=== PATIENT | female | born 1950 | race Caucasian/White ===

== ENCOUNTER 2018-11-26 21:25 | Inpatient (IN) | payer MEDICARE, OTHER ==
[~2018-11-26] VITALS: Ht 157.5 cm; Wt 61.4 kg
[~2018-11-26 21:25] MED LIST: RESTASIS
[2018-11-26 22:02] LABS: BASOPHILS % 0.8 % (0.0-2.0); EOSINOPHILS % 1.9 % (0.0-5.0); HEMATOCRIT. 43.1 % (36.0-48.0); MEAN CORPUSCULAR VOLUME 86.4 fL (81.0-99.0); MEAN PLATELET VOLUME 10.6 fl (7.4-10.4); MONOCYTES % 12.7 % (2.0-8.0); NEUTROPHILS % 48.6 % (40.0-76.0); PLATELET 172 x1000/uL (130-400); RED BLOOD CELL COUNT 4.99 mill/uL (4.2-5.4); RED CELL DISTRIBUTION WIDTH 12.9 % (11.6-14.6)
[2018-11-26 22:09] LABS: CHLORIDE 107 mEq/L (98-107)
[2018-11-26 22:10] LABS: INR 1.2; PARTIAL THROMBOPLASTIN TIME 27.3 sec (23.4-31.0); PROTHROMBIN TIME 12.2 sec (9.1-11.1)
[2018-11-26] MEDS ORDERED: IOHEXOL-350 100 ML BOTTLE ONE (22:39)
[2018-11-26] MEDS ORDERED: SODIUM CHLORIDE 0.9% 1000ML BAG (SEPSIS BOLUS) IV ONE (23:30)
[2018-11-26] MEDS ORDERED: LEVOFLOXACIN 750MG PREMIX 150 ML IV ONE (23:30)
[2018-11-26] MEDS ORDERED: ASPIRIN 325MG EC TABLET PO ONE (23:30)
[2018-11-27 03:26] VITALS: BP 118/49
[2018-11-27 04:00] VITALS: BP 118/49
[2018-11-27] MEDS ORDERED: ONDANSETRON HCL 4MG/2ML INJ IV PRN (06:30)
[2018-11-27 08:00] VITALS: BP 101/51
[2018-11-27] MEDS: ASPIRIN 81MG TABLET PO SCH (09:24)
[2018-11-27] MEDS: PREDNISONE 20MG TABLET PO SCH (09:24)
[2018-11-27] MEDS: ENOXAPARIN 40MG/0.4ML SYR SUBCUT SCH (09:25)
[2018-11-27 09:33] LABS: BASOPHILS % 0.7 % (0.0-2.0); EOSINOPHILS % 1.5 % (0.0-5.0); HEMATOCRIT. 45.3 % (36.0-48.0); HEMOGLOBIN. 15.3 g/dL (12.0-16.0); MEAN CORPUSCULAR HEMOGLOBIN 29.4 pg (28.0-32.0); MEAN CORPUSCULAR VOLUME 86.9 fL (81.0-99.0); MONOCYTES % 10.3 % (2.0-8.0); NEUTROPHILS % 60.5 % (40.0-76.0); PLATELET 172 x1000/uL (130-400); RED BLOOD CELL COUNT 5.21 mill/uL (4.2-5.4); RED CELL DISTRIBUTION WIDTH 13.1 % (11.6-14.6)
[2018-11-27 09:43] LABS: CHLORIDE 111 mEq/L (98-107)
[2018-11-27 09:50] LABS: LDL CHOLESTEROL 127 mg/dL (5-100)
[2018-11-27 09:52] LABS: HDL CHOLESTEROL 48 mg/dL (40-59); T4 FREE 1.22 ng/dL (0.76-1.46)
[2018-11-27] MEDS: ACYCLOVIR 400 MG TABLET PO SCH ×4 (11:36→21:22)
[2018-11-27 12:00] VITALS: BP 106/48
[2018-11-27] MEDS: ACETAMINOPHEN 325MG TABLET PO PRN (15:19)
[2018-11-27 16:00] VITALS: BP 95/57
[2018-11-27 20:00] VITALS: BP 111/58
[2018-11-27] MEDS ORDERED: ATORVASTATIN CALCIUM 20MG TABLET PO SCH (21:00)
[2018-11-27] MEDS ORDERED: LEVOFLOXACIN 500MG PREMIX 100 ML IV SCH (21:00)
[2018-11-28] VITALS: BP 110/60
[2018-11-28 04:00] VITALS: BP 104/47
[2018-11-28] MEDS: ACYCLOVIR 400 MG TABLET PO SCH ×3 (06:05→14:43)
[2018-11-28 06:36] LABS: BASOPHILS % 0.3 % (0.0-2.0); EOSINOPHILS % 0.3 % (0.0-5.0); HEMOGLOBIN. 13.4 g/dL (12.0-16.0); LYMPHOCYTES % 23.6 % (20.0-50.0); MEAN CORPUSCULAR HEMOGLOBIN 29.4 pg (28.0-32.0); MEAN CORPUSCULAR VOLUME 87.6 fL (81.0-99.0); MEAN PLATELET VOLUME 10.5 fl (7.4-10.4); MONOCYTES % 11.7 % (2.0-8.0); NEUTROPHILS % 64.1 % (40.0-76.0); PLATELET 159 x1000/uL (130-400); RED BLOOD CELL COUNT 4.57 mill/uL (4.2-5.4)
[2018-11-28 06:57] LABS: CHLORIDE 110 mEq/L (98-107)
[2018-11-28 08:00] VITALS: BP 104/58
[2018-11-28] MEDS: ACETAMINOPHEN 325MG TABLET PO PRN (08:48)
[2018-11-28] MEDS: ASPIRIN 81MG TABLET PO SCH (08:49)
[2018-11-28] MEDS: PREDNISONE 20MG TABLET PO SCH (08:49)
[2018-11-28] MEDS: ENOXAPARIN 40MG/0.4ML SYR SUBCUT SCH (08:50)
[2018-11-28 12:00] VITALS: BP 110/50
[2018-11-28 14:22] VITALS: BP 108/50
[2018-11-28 16:00] VITALS: BP 108/50
== END 2018-11-28 16:44 | disposition home or self-care (01) | DRG 48 ==
LOC: ER 21:25 → 7WST 23:55 → ENRESERV 11-27 00:27
PROVIDERS: ADMIT Internal Medicine; ATTEND Internal Medicine
DX: G51.0 Bell's palsy (principal); E03.9 Hypothyroidism, unspecified; E78.00 Pure hypercholesterolemia, unspecified; E78.5 Hyperlipidemia, unspecified; H54.7 Unspecified visual loss; I10 Essential (primary) hypertension; Z88.8 Allergy status to other drugs, medicaments and biological substances
CPT/HCPCS: 36415; 70496; 70498; 70551; 71045; 80048; 80061; 82962; 83605; 83880; 84145; 84439; 84443; 84484; 92610; 93005; 96365; 97162; 97165; 99285; J1650; J1956; J7030; J7050; J7512; Q9967

== ENCOUNTER 2019-05-13 08:33 | Inpatient (IN) | payer MEDICARE, OTHER ==
[~2019-05-13] VITALS: Ht 152.4 cm; Wt 59.0 kg
[2019-05-13] MEDS ORDERED: SODIUM CHLORIDE 0.9% 1,000 ML IV ONE (09:19)
[2019-05-13 09:34] LABS: BASOPHILS % 0.6 % (0.0-2.0); EOSINOPHILS % 1.5 % (0.0-5.0); HEMATOCRIT. 42.4 % (36.0-48.0); HEMOGLOBIN. 14.6 g/dL (12.0-16.0); MEAN CORPUSCULAR HEMOGLOBIN 29.6 pg (28.0-32.0); MEAN PLATELET VOLUME 10.1 fl (7.4-10.4); MONOCYTES % 11.6 % (2.0-8.0); NEUTROPHILS % 65.3 % (40.0-76.0); PLATELET 174 x1000/uL (130-400); RED BLOOD CELL COUNT 4.92 mill/uL (4.2-5.4); RED CELL DISTRIBUTION WIDTH 12.8 % (11.6-14.6)
[2019-05-13 09:43] LABS: CHLORIDE 110 mEq/L (98-107)
[2019-05-13] MEDS ORDERED: ACETAMINOPHEN WITH CODEINE 300/30MG TABLET PO STA (11:11)
[2019-05-13] MEDS ORDERED: ASPIRIN 81MG TABLET PO ONE (11:15)
[2019-05-13] MEDS ORDERED: IPRATROPIUM/ALBUTEROL 0.5-3(2.5)MG/3ML NEB HHN PRN (12:30)
[2019-05-13 14:25] LABS: CLARITY URINE CLEAR (CLEAR); COLOR URINE YELLOW (YELLOW); KETONES URINE NEGATIVE (NEGATIVE); LEUKOCYTE ESTERASE URINE TRACE (NEGATIVE); NITRITE URINE NEGATIVE (NEGATIVE); OCCULT BLOOD URINE NEGATIVE (NEGATIVE); PH URINE 6.5 (4.5-8.0); PROTEIN URINE NEGATIVE (NEGATIVE); SPECIFIC GRAVITY URINE 1.009 (1.005-1.030)
[2019-05-13 16:00] VITALS: BP 100/50
[2019-05-13 16:45] VITALS: BP 100/50
[2019-05-13] MEDS ORDERED: NAPR-679 PO (18:10)
[2019-05-13] MEDS ORDERED: MULT-1146 MT (18:12)
[2019-05-13] MEDS ORDERED: LEVO88TA7 PO (18:22)
[2019-05-13] MEDS: ENOXAPARIN 40MG/0.4ML SYR SUBCUT SCH (18:35)
[2019-05-13] MEDS ORDERED: GUAIFENESIN-DM 200MG-20MG/10ML UDC PO PRN (19:00)
[2019-05-13 20:00] VITALS: BP 103/46
[2019-05-13] MEDS: ATORVASTATIN CALCIUM 20MG TABLET PO SCH (20:19)
[2019-05-13] MEDS: GUAIFENESIN 600MG ER TABLET PO SCH (20:19)
[2019-05-14 00:22] VITALS: BP 104/44
[2019-05-14 04:00] VITALS: BP 104/47
[2019-05-14 07:17] LABS: CHLORIDE 110 mEq/L (98-107)
[2019-05-14 07:25] LABS: BASOPHILS % 0.4 % (0.0-2.0); EOSINOPHILS % 2.1 % (0.0-5.0); HEMATOCRIT. 40.9 % (36.0-48.0); HEMOGLOBIN. 13.8 g/dL (12.0-16.0); LYMPHOCYTES % 25.7 % (20.0-50.0); MEAN CORPUSCULAR HEMOGLOBIN 29.4 pg (28.0-32.0); MEAN CORPUSCULAR VOLUME 86.8 fL (81.0-99.0); MEAN PLATELET VOLUME 10.3 fl (7.4-10.4); MONOCYTES % 12.9 % (2.0-8.0); NEUTROPHILS % 58.9 % (40.0-76.0); PLATELET 144 x1000/uL (130-400); RED BLOOD CELL COUNT 4.71 mill/uL (4.2-5.4); RED CELL DISTRIBUTION WIDTH 12.8 % (11.6-14.6)
[2019-05-14 08:00] VITALS: BP 107/44
[2019-05-14] MEDS: GUAIFENESIN 600MG ER TABLET PO SCH ×2 (09:49→23:02)
[2019-05-14] MEDS: ACETAMINOPHEN 325MG TABLET PO PRN (09:50)
[2019-05-14] MEDS: ASPIRIN 81MG TABLET PO SCH (09:50)
[2019-05-14 12:00] VITALS: BP 104/54
[2019-05-14] MEDS ORDERED: KETOROLAC 15MG/ML VIAL IV PRN (13:15)
[2019-05-14] MEDS: TRAMADOL 50MG TABLET PO PRN ×2 (15:27→22:52)
[2019-05-14 16:00] VITALS: BP 98/47
[2019-05-14] MEDS: ENOXAPARIN 40MG/0.4ML SYR SUBCUT SCH (18:51)
[2019-05-14 20:00] VITALS: BP 117/46
[2019-05-14] MEDS: ATORVASTATIN CALCIUM 20MG TABLET PO SCH (22:51)
[2019-05-14] MEDS: ONDANSETRON HCL 4MG/2ML INJ IV PRN (23:02)
[2019-05-15] VITALS: BP 112/52
[2019-05-15 04:00] VITALS: BP 110/55
[2019-05-15 08:00] VITALS: BP 111/59
[2019-05-15] MEDS: ASPIRIN 81MG TABLET PO SCH (08:43)
[2019-05-15] MEDS: GUAIFENESIN 600MG ER TABLET PO SCH ×2 (08:43→20:56)
[2019-05-15] MEDS: ACETAMINOPHEN 325MG TABLET PO PRN (08:44)
[2019-05-15] MEDS: ONDANSETRON HCL 4MG/2ML INJ IV PRN (09:21)
[2019-05-15 12:00] VITALS: BP 98/61
[2019-05-15] MEDS ORDERED: ONDANSETRON HCL 4MG/2ML INJ IV PRN (13:00)
[2019-05-15] MEDS ORDERED: MECLIZINE 25MG TABLET PO PRN (13:15)
[2019-05-15 16:00] VITALS: BP 105/58
[2019-05-15] MEDS: ENOXAPARIN 40MG/0.4ML SYR SUBCUT SCH (18:00)
[2019-05-15 20:00] VITALS: BP 105/50
[2019-05-15] MEDS: ATORVASTATIN CALCIUM 20MG TABLET PO SCH (20:55)
[2019-05-16] VITALS: BP 123/61
[2019-05-16] MEDS: TRAMADOL 50MG TABLET PO PRN (01:02)
[2019-05-16 04:00] VITALS: BP 98/46
[2019-05-16 06:48] LABS: BASOPHILS % 0.4 % (0.0-2.0); EOSINOPHILS % 1.5 % (0.0-5.0); HEMATOCRIT. 40.3 % (36.0-48.0); LYMPHOCYTES % 23.5 % (20.0-50.0); MEAN CORPUSCULAR HEMOGLOBIN 30.1 pg (28.0-32.0); MEAN CORPUSCULAR VOLUME 86.5 fL (81.0-99.0); MEAN PLATELET VOLUME 10.3 fl (7.4-10.4); MONOCYTES % 12.5 % (2.0-8.0); NEUTROPHILS % 62.1 % (40.0-76.0); PLATELET 152 x1000/uL (130-400); RED BLOOD CELL COUNT 4.66 mill/uL (4.2-5.4); RED CELL DISTRIBUTION WIDTH 12.9 % (11.6-14.6)
[2019-05-16 07:19] LABS: CHLORIDE 106 mEq/L (98-107)
[2019-05-16 08:00] VITALS: BP 101/56
[2019-05-16] MEDS: GUAIFENESIN 600MG ER TABLET PO SCH ×2 (09:03→22:03)
[2019-05-16] MEDS: ASPIRIN 81MG TABLET PO SCH (09:03)
[2019-05-16 12:00] VITALS: BP 105/59
[2019-05-16] MEDS ORDERED: DIATR MEGLU/DIATRIZOATE SOLN 30ML PO NR (13:45)
[2019-05-16 16:00] VITALS: BP_SYST 105; BP_SYST 111; BP_DIAS 59; BP_DIAS 61
[2019-05-16] MEDS ORDERED: POTASSIUM CHLORIDE INJ 40 MEQ in DEXT 5% WATER 250 ML IV NR (17:00)
[2019-05-16] MEDS: ENOXAPARIN 40MG/0.4ML SYR SUBCUT SCH (18:00)
[2019-05-16 20:00] VITALS: BP 106/71
[2019-05-16] MEDS: ATORVASTATIN CALCIUM 20MG TABLET PO SCH (22:03)
[2019-05-17] VITALS: BP 96/42
[2019-05-17] MEDS: TRAMADOL 50MG TABLET PO PRN (01:03)
[2019-05-17 04:00] VITALS: BP 106/46
[2019-05-17 06:21] LABS: HEMATOCRIT. 42.5 % (36.0-48.0); HEMOGLOBIN. 14.7 g/dL (12.0-16.0); MEAN CORPUSCULAR HEMOGLOBIN 29.8 pg (28.0-32.0); MEAN PLATELET VOLUME 10.2 fl (7.4-10.4); PLATELET 165 x1000/uL (130-400); RED BLOOD CELL COUNT 4.94 mill/uL (4.2-5.4); RED CELL DISTRIBUTION WIDTH 13.3 % (11.6-14.6)
[2019-05-17 06:30] LABS: CHLORIDE 106 mEq/L (98-107)
[2019-05-17 08:00] VITALS: BP 109/51
[2019-05-17] MEDS: GUAIFENESIN 600MG ER TABLET PO SCH (09:16)
[2019-05-17] MEDS: ASPIRIN 81MG TABLET PO SCH (09:16)
[2019-05-17 12:00] VITALS: BP 125/59
[2019-05-17 15:22] VITALS: BP 121/66
[2019-05-17 15:54] VITALS: BP 111/57
[2019-05-17 17:56] LABS: PLATELET ESTIMATE NORMAL
== END 2019-05-17 18:35 | disposition home health service (06) | DRG 206 ==
LOC: ER 08:33 → 7WST 11:40 → ENRESERV 14:15
PROVIDERS: ADMIT Internal Medicine; ATTEND Internal Medicine
PROC: 4A00X4Z Measurement of Central Nervous Electrical Activity, External Approach (ICD-10-PCS; principal; 2019-05-17)
DX: M94.0 Chondrocostal junction syndrome [Tietze] (principal); E44.1 Mild protein-calorie malnutrition; J06.9 Acute upper respiratory infection, unspecified; E87.8 Other disorders of electrolyte and fluid balance, not elsewhere classified; E03.9 Hypothyroidism, unspecified; I10 Essential (primary) hypertension; E78.5 Hyperlipidemia, unspecified; G90.8 Other disorders of autonomic nervous system; E78.00 Pure hypercholesterolemia, unspecified; G44.209 Tension-type headache, unspecified, not intractable; Z86.73 Personal history of transient ischemic attack (TIA), and cerebral infarction without residual deficits; Z68.25 Body mass index [BMI] 25.0-25.9, adult
CPT/HCPCS: 36415; 71045; 73030; 74176; 80048; 83880; 84484; 93005; 93306; 96360; 96361; 97161; 99285; A4565; J1650; J2405; J3480; J7030; J7050; J7060; J8597; Q9963

== ENCOUNTER 2021-12-14 00:31 | Emergency (ER) | payer MEDICARE, OTHER ==
[~2021-12-14] VITALS: Ht 152.4 cm; Wt 59.2 kg
[~2021-12-14 00:31] MED LIST changes: +LEVO88TA7 PO; +MULT-1146 MT; +NAPR-679 PO; -RESTASIS
[2021-12-14] MEDS ORDERED: BACITRACIN ZINC OINT UDPKT TOP ONE (01:45)
[2021-12-14] MEDS ORDERED: LIDOCAINE HCL/PF 1% 10 MG/ML 5ML VIAL INFIL ONE (01:45)
[2021-12-14] MEDS ORDERED: TETANUS, DIPHTHERIA, PERTUSSIS VAC/PF 0.5ML (>10YR OLD) IM ONE (01:45)
[2021-12-14] MEDS ORDERED: ACETAMINOPHEN 325MG TABLET PO ONE (01:45)
[2021-12-14] MEDS ORDERED: LIDOCAINE HCL 1% 20ML VIAL (Pyxis) INJ INFIL SCH (02:30)
[2021-12-14] MEDS ORDERED: ACET-2708 MT (03:54)
[2021-12-14] MEDS ORDERED: BO1 TP (03:54)
[2021-12-14 04:06] VITALS: BP 145/85
== END 2021-12-14 04:08 | disposition home or self-care (01) ==
LOC: ER 00:31
DX: S01.112A Laceration without foreign body of left eyelid and periocular area, initial encounter (principal); W10.8XXA Fall (on) (from) other stairs and steps, initial encounter; Y93.89 Activity, other specified; Y92.018 Other place in single-family (private) house as the place of occurrence of the external cause
CPT/HCPCS: 12013; 70450; 90471; 90715; 99284; J3490

== ENCOUNTER 2024-09-11 11:32 | Emergency (ER) | payer MEDICARE, OTHER ==
[~2024-09-11] VITALS: Ht 152.4 cm; Wt 55.0 kg
[~2024-09-11 11:32] MED LIST changes: +ATOR40TA70 MT; +HYDR-4001 MT; +LEVO112T7 MT; -LEVO88TA7 PO; -MULT-1146 MT; -NAPR-679 PO
[2024-09-11 11:36] VITALS: O2SAT 97
[2024-09-11] MEDS ORDERED: [UNRECOGNIZED DRUG - CODE] PO (14:01)
[2024-09-11 14:10] VITALS: BP 124/69; PULSE 74; RESP 18; TEMP 37.05852; O2SAT 97
== END 2024-09-11 14:29 | disposition home or self-care (01) ==
LOC: ER 11:32
DX: R05.9 Cough, unspecified (principal); I10 Essential (primary) hypertension; Z79.899 Other long term (current) drug therapy; Z20.822 Contact with and (suspected) exposure to COVID-19
CPT/HCPCS: 71045; 87426; 99284

== ENCOUNTER 2025-04-26 09:17 | Emergency (ER) | payer MEDICARE, MEDICAID ==
[~2025-04-26] VITALS: Ht 152.4 cm; Wt 50.0 kg
[~2025-04-26 09:17] MED LIST changes: +[UNRECOGNIZED DRUG - CODE] PO
[2025-04-26 09:30] VITALS: O2SAT 96
[2025-04-26 09:44] LABS: BASOPHILS % 0.5 % (0.0-2.0); EOSINOPHILS % 1.1 % (0.0-5.0); HEMATOCRIT. 41.8 % (36.0-48.0); HEMOGLOBIN. 14.2 g/dL (12.0-16.0); LYMPHOCYTES % 19.3 % (20.0-50.0); MEAN CORPUSCULAR HEMOGLOBIN 28.5 pg (28.0-32.0); MEAN CORPUSCULAR HGB CONC 33.9 g/dL (31.0-37.0); MEAN CORPUSCULAR VOLUME 83.9 fL (81.0-99.0); MEAN PLATELET VOLUME 9.3 fl (7.4-10.4); MONOCYTES % 12.3 % (2.0-8.0); NEUTROPHILS % 66.8 % (40.0-76.0); PLATELET 166 x1000/uL (130-400); RED BLOOD CELL COUNT 4.98 mill/uL (4.2-5.4); RED CELL DISTRIBUTION WIDTH 12.9 % (11.6-14.6); WHITE BLOOD COUNT 8.7 x1000/uL (4.5-11.0)
[2025-04-26 09:59] LABS: CALCIUM 9.2 mg/dL (8.7-10.4); CARBON DIOXIDE 25 mEq/L (21-32); CHLORIDE 106 mEq/L (98-107); POTASSIUM 4.1 mEq/L (3.5-5.1); SODIUM 139 mEq/L (136-145)
[2025-04-26 10:05] LABS: CREATININE 0.6 mg/dL (0.6-1.0); GLUCOSE 108 mg/dL (70-105); UREA NITROGEN BLOOD 13 mg/dL (9-23)
[2025-04-26 10:06] LABS: TROPONIN I HIGH SENSITIVITY < 4 ng/L (3.0-34)
[2025-04-26 10:30] LABS: CLARITY URINE CLEAR (CLEAR); COLOR URINE YELLOW (YELLOW); GLUCOSE URINE NEGATIVE (NEGATIVE); KETONES URINE NEGATIVE (NEGATIVE); LEUKOCYTE ESTERASE URINE NEGATIVE (NEGATIVE); NITRITE URINE NEGATIVE (NEGATIVE); OCCULT BLOOD URINE NEGATIVE (NEGATIVE); PH URINE 5.5 (4.5-8.0); PROTEIN URINE NEGATIVE (NEGATIVE)
[2025-04-26] MEDS ORDERED: AZIT250T12 MT (11:45)
[2025-04-26] MEDS ORDERED: TOPUD MT (11:45)
[2025-04-26] MEDS ORDERED: DEXT30SU17 MT (11:45)
[2025-04-26 12:05] VITALS: BP 110/53; PULSE 91; RESP 20; TEMP 36.9; O2SAT 98
== END 2025-04-26 12:10 | disposition home or self-care (01) ==
LOC: ER 09:17
DX: J20.9 Acute bronchitis, unspecified (principal); Z20.822 Contact with and (suspected) exposure to COVID-19; Z79.899 Other long term (current) drug therapy; Z98.890 Other specified postprocedural states
CPT/HCPCS: 36415; 80048; 81003; 83605; 83880; 84484; 85025; 87426; 93005; 99284